=== PATIENT | male | born 1940 | race Caucasian/White ===

== ENCOUNTER 2019-01-02 14:44 | Observation (INO) ==
[2019-01-02] MEDS ORDERED: 0.9 % Sodium Chloride 500 ML IVC ONE (14:50)
--- NOTE | 2019-01-02 14:51 | Emergency Department Note ---
Disposition Clinical Impression: Generalized weakness Acute renal failure Qualifiers: Acute renal failure type: unspecified Qualified Code(s): N17.9 - Acute kidney failure, unspecified Disposition: Admitted As Inpatient Condition: Fair Referrals: Buzz Laboy DO [Primary Care Provider] - Forms: ED Satisfaction Letter Time of Disposition: 15:46 Weakness HPI - General Chief complaint: ED Weakness Stated complaint: WEAKNESS Time Seen by Provider: 01/02/19 14:48 Source: patient, family Mode of arrival: private vehicle Limitations: no limitations Nursing Notes Reviewed: Yes Vital Signs Reviewed: Yes - History of Present Illness HPI Narrative: Patient arrives with a complete history of "did not feel good". He states this has been going on for a "long time". I was eventually able to get from him that this is been a problem intermittently for over a month. He has had a feeling of generalized weakness. At times he will "hurt all over". He saw his primary care provider today in the office and was shown to have a blood pressure 110/57 while sitting with a heart rate of 67 and a standing blood pressure of 83/45 and a heart rate of 74. With this he is advised to come here for further evaluation. Patient denies any type of headache, chest pain or abdominal pain. He denies cough or any abnormal shortness of breath he admits to a normal amount of dyspnea on exertion and work intolerance. He denies any difficulty with speech, thought or any extremity localized numbness, tingling or weakness. He has some chronic pain which he thinks is arthritic in his left knee. Denies a recent falls or injuries. He has not been presyncopal. Denies any change to medications including [id number]. He has not been having diarrhea, constipation or any bloody or black stools. He denies difficulty with urination. Patient does have diabetes but believes his blood or any others have been okay. Family is not able to give any further history on this patient's symptoms. Pt Subjective Complaint: generalized weakness/fatigue Onset (ago): month(s) Duration: intermittent, gradually worsening Location: generalized Pain Severity: moderate If pain, quality: aching Associated symptoms: Reports: myalgias. Denies: chest pain, confusion, dark stools, diaphoresis, dysuria, easy bruising, fever/chills, headaches, loss of appetite, nausea/vomiting, rash, shortness of breath, syncope - Related Data Home Medications Medication Instructions Recorded Confirmed Atorvastatin [Lipitor] 80 mg PO HS 02/20/15 01/02/19 Clopidogrel [Plavix] 75 mg PO DAILY 02/20/15 01/02/19 Lisinopril [Zestril] 5 mg PO DAILY 02/20/15 01/02/19 Metoprolol XL (24 HR) Succ [Toprol 150 mg PO DAILY 02/20/15 01/02/19 XL] Finasteride [Proscar] 5 mg PO DAILY 04/22/18 01/02/19 Pantoprazole Sodium [Protonix] 20 mg PO DAILY 04/22/18 01/02/19 Tamsulosin [Flomax] 0.4 mg PO DAILY 04/22/18 01/02/19 Venlafaxine HCl [Venlafaxine HCl 150 mg PO DAILY 04/22/18 01/02/19 ER] metFORMIN [Glucophage] 1,000 mg PO BIDWM 04/22/18 01/02/19 Gabapentin [Neurontin] 600 mg PO HS 01/02/19 01/02/19 Allergies Allergy/AdvReac Type Severity Reaction Status Date / Time No Known Allergies Allergy Verified 01/02/19 14:46 All systems ED: reviewed and negative except as stated. Past Medical History - Past Medical History Attestation: Yes The following information was validated with the patient. Source: patient, old records reviewed, obtained from family, nursing notes reviewed Medical history: Reports: cancer (Left arm basal cell), coronary artery disease, diabetes, GERD, hyperlipidemia, hypertension, other (Dysrhythmia, elevated BMI, BPH). Denies: COPD, CVA Surgical history: Reports: angioplasty/stent, cancer surgery (Excision of left arm basal cell cancer), pacemaker/AICD Psychiatric history: Reports: no psych history - Social History Smoking Status: Never smoker Smokeless Tobacco Status: No Alcohol use: Reports: none Drug use: Reports: none Physical Exam - General Limitations: no limitations General appearance: alert, in no apparent distress - Head Head exam: atraumatic, normocephalic, normal inspection - Eye Eye exam: Present: normal appearance, PERRL, EOMI. Absent: scleral icterus, conjunctival injection - ENT ENT exam: normal exam, normal oropharynx, mucous membranes moist - Neck Neck exam: Present: normal inspection, full ROM, trachea midline. Absent: lymphadenopathy - Chest Chest inspection: Present: normal inspection, symmetric chest wall rise - Respiratory Respiratory exam: Present: normal lung sounds bilaterally. Absent: respiratory distress, wheezes, prolonged expiratory phase - Cardiovascular Cardiovascular exam: Present: regular rate, normal rhythm, normal heart sounds. Absent: tachycardia - Abdominal Exam Abdominal exam: Present: soft, Non-Tender, normal bowel sounds. Absent: tenderness, distention, guarding, rebound, rigidity, mass, pulsatile mass - Extremities Exam Extremities exam: Present: normal inspection, full ROM, normal capillary refill. Absent: tenderness, pedal edema, calf tenderness - Expanded Lower Extremity Exam Neurovascular/Tendon exam: Present: normal capillary refill. Absent: motor deficit, sensory deficit, tendon deficit Gait: observed and normal - Back Exam Back exam: Present: normal inspection, full ROM. Absent: tenderness, CVA tenderness (R), CVA tenderness (L) - Neurological Exam Neurological exam: Present: alert, oriented X3, normal gait - Psychiatric Psychiatric exam: Present: normal affect, normal mood - Skin Skin exam: Present: warm, dry, intact, normal color. Absent: rash, diaphoresis, pallor Course Course Narrative: 1543: All laboratory results of been reviewed short of the TSH is pending and he has not been yet able to urinate. Patient's white count is low at 2.5 without concerning differential. His platelets are slightly decreased at 126 the hemoglobin is 12.7 and stable. Chemistries remarkable for a BUN 38 and a creatinine of 2.07. This is a significant change from his baseline. His last creatinine on July 12 is 1.17. Patient's AST and ALT are only slightly elevated at 49 and 53. Troponin is negative at less than 0.03. Fluids are continued and the patient and family advised that he should be observed for continued IV hydration and repeat of his chemistries in the morning. Or this purpose Dr. العراقي has been paged. 1554: Care has been reviewed with Dr. العراقي. He is given referral or for the observation of this patient. Patient's antihypertensives and metformin have been held. We are awaiting bed and staff availability prior to going to the floor. Vital Signs Temperature 97.9 F 01/02/19 15:00 Pulse Rate 67 01/02/19 15:00 Respiratory Rate 18 01/02/19 15:00 Blood Pressure 103/64 01/02/19 15:00 O2 Sat by Pulse Oximetry 96 01/02/19 15:00 Temperature 97.9 F 01/02/19 15:00 Pulse Rate 67 01/02/19 15:00 Respiratory Rate 18 01/02/19 15:00 Blood Pressure 103/64 01/02/19 15:00 O2 Sat by Pulse Oximetry 96 01/02/19 15:00 Oxygen Delivery Oxygen Delivery Room Air Weakness - Differential Diagnosis Differential Diagnosis: Likely: anemia, hypoglycemia, sepsis/infection, dehydration, medication effect, metabolic, thyroid/endocrine disorder - Medical Records Medical records reviewed: Yes I reviewed the patient's medical records. - Lab Data Lab results reviewed: Yes I reviewed the patient's lab results. Result diagrams: 01/02/19 15:12 01/02/19 15:12 Lab Results 01/02/19 01/02/19 01/02/19 Range/Units 15:12 15:12 15:12 WBC 2.5 L (4.3-11.1) K/mcL RBC 3.92 L (4.19-5.50) M/mcL Hgb 12.7 L (12.9-16.9) g/dL Hct 41.4 (37.5-50.1) % MCV 105.6 H (83.0-100.0) fL MCH 32.4 (28.0-33.3) pg MCHC 30.7 L (31.6-35.5) g/dL RDW 13.2 (11.5-14.5) % Plt Count 126 L (140-400) K/mcL MPV 9.2 L (9.4-12.4) fL Immature Gran % 0.4 (0-4) % Seg Neutrophils % 54.9 % Lymphocytes % 31.5 % Monocytes % 12.4 % Eosinophils % 0.0 % Basophils % 0.8 % Neutrophils # 1.4 L (1.6-8.9) K/mcL Lymphocytes # 0.8 (0.6-4.6) K/mcL Monocytes # 0.3 (0.0-1.3) K/mcL Eosinophils # 0.0 (0.0-0.6) K/mcL Basophils # 0.0 (0.0-0.2) K/mcL Reactive Lymphocytes Present A (Not Present) Platelet Estimate Normal (Normal) Sodium 134 L (136-145) mEq/L Potassium 5.1 (3.5-5.1) mEq/L Chloride 102 (98-107) mEq/L Carbon Dioxide 22 L (23-29) mEq/L BUN 38 H (8-23) mg/dL Creatinine 2.07 H (0.70-1.30) mg/dL Est GFR ( Amer) 38 L (> 60) Est GFR (Non-Af Amer) 31 L (> 60) BUN/Creatinine Ratio 18 (6-26) Glucose 121 H (70-105) mg/dL Calculated Osmolality 288 (280-300) Calcium 8.4 L (8.6-10.3) mg/dL Total Bilirubin 0.3 (0.3-1.0) mg/dL AST 49 H (13-39) Units/L ALT 53 H (7-52) Units/L Alkaline Phosphatase 58 (34-104) Units/L Troponin I < 0.03 (< 0.04) ng/mL Serum Total Protein 6.8 (6.4-8.9) g/dL Albumin 3.9 (3.5-5.7) g/dL Globulin 2.9 (2.4-3.5) g/dL Albumin/Globulin Ratio 1.3 (1.1-2.2) TSH 4.205 (0.340-5.600) mcIU/mL - Radiology Data Radiology results reviewed: Yes I reviewed the patient's radiology results. Single view chest x-ray is performed. This does not demonstrate evidence for infiltrate, effusion, pneumothorax, foreign body or heart failure. The cardiac silhouette is normal. Patient has a pacemaker in place left upper chest with intact wires. I do not see abnormality to the osseous structures of the chest. This is on my interpretation. Impressions Chest X-Ray 01/02/19 14:49 IMPRESSION: 1. No active pulmonary disease. 2. Cardiomegaly without overt failure. D/ / Yoshi Grace MD / Yoshi Grace MD Interpreting Provider: Yoshi Grace MD - EKG Data EKG attestation: Yes I reviewed and interpreted this EKG. EKG shows normal: sinus rhythm, axis, intervals, ST-T waves Rate: normal (69) [place]/QRS: LBBB Interpretation: no acute changes, nonspecific ST-T wave changes
[2019-01-02 15:18] LABS: Basophils % 0.8 %; Hematocrit 41.4 % (37.5-50.1); Hemoglobin 12.7 g/dL (12.9-16.9); Immature Granulocytes % 0.4 % (0-4); Lymphocytes # 0.8 K/mcL (0.6-4.6); Lymphocytes % 31.5 %; Mean Corpuscular HGB Conc 30.7 g/dL (31.6-35.5); Mean Corpuscular Hemoglobin 32.4 pg (28.0-33.3); Mean Corpuscular Volume 105.6 fL (83.0-100.0); Mean Platelet Volume 9.2 fL (9.4-12.4); Monocytes # 0.3 K/mcL (0.0-1.3); Monocytes % 12.4 %; Neutrophils # 1.4 K/mcL (1.6-8.9); Platelet Count 126 K/mcL (140-400); Red Blood Count 3.92 M/mcL (4.19-5.50); Red Cell Distribution Width 13.2 % (11.5-14.5); Segmented Neutrophils % 54.9 %; White Blood Count 2.5 K/mcL (4.3-11.1)
[2019-01-02 15:36] LABS: Alanine Aminotransferase 53 Units/L (7-52); Albumin 3.9 g/dL (3.5-5.7); Albumin/Globulin Ratio 1.3 (1.1-2.2); Alkaline Phosphatase 58 Units/L (34-104); Aspartate Amino Transferase 49 Units/L (13-39); BUN/Creatinine Ratio 18 (6-26); Bilirubin,Total 0.3 mg/dL (0.3-1.0); Blood Urea Nitrogen 38 mg/dL (8-23); Calcium 8.4 mg/dL (8.6-10.3); Carbon Dioxide 22 mEq/L (23-29); Chloride 102 mEq/L (98-107); Globulin 2.9 g/dL (2.4-3.5); Glucose 121 mg/dL (70-105); Osmolality,Calculated 288 (280-300); Potassium 5.1 mEq/L (3.5-5.1); Sodium 134 mEq/L (136-145); Total Protein 6.8 g/dL (6.4-8.9); eGFR For African Americans 38 (> 60); eGFR For Non-African Americans 31 (> 60)
[2019-01-02 15:37] LABS: Troponin I < 0.03 ng/mL (< 0.04)
[2019-01-02 15:43] LABS: Platelet Estimate Normal (Normal); Reactive Lymphocytes Present (Not Present)
[2019-01-02] MEDS ORDERED: 0.9 % Sodium Chloride 1,000 ML IVC SCH (15:45)
[2019-01-02 15:57] LABS: Bilirubin,Urine Negative (Negative); Blood,Urine Negative (Negative); Clarity,Urine Clear (Clear); Color,Urine Yellow (Yellow); Glucose,Urine (UA) Normal (Normal); Ketones,Urine Trace mg/dL (Negative); Leukocyte Esterase,Urine Negative (Negative); Nitrite,Urine Negative (Negative); Protein,Urine 30 mg/dL (Neg-Trace); Specific Gravity,Urine >= 1.030 (1.010-1.025); Urobilinogen,Urine Normal (Normal)
[2019-01-02 16:05] LABS: Bacteria,Urine Few per hpf (None-Few); Calcium Oxalate Crystals,Urine Present; Granular Casts,Urine Few per lpf (None Seen); Hyaline Casts,Urine Few per lpf (None-Few); RBC,Urine 0-3 per hpf (0-3); Squamous Epithelial Cell,Urine Few per lpf (None-Few); WBC,Urine 0-3 per hpf (0-3)
[2019-01-02] MEDS ORDERED: D5% in Water 1,000 ML IVC PRN (17:47)
[2019-01-02] MEDS ORDERED: Naloxone 0.4 MG/ML INJ IVP PRN (17:47)
[2019-01-02] MEDS ORDERED: *HR* Dextrose 50 % in Water (Vial) 50 ML VIAL IVP PRN (17:47)
[2019-01-02] MEDS ORDERED: Ondansetron ODT 4 MG TAB.RAPDIS SL PRN (17:47)
[2019-01-02] MEDS ORDERED: Dextrose Gel 15 GM/37.5 ML TUBE PO PRN ×2 (17:47)
[2019-01-02] MEDS ORDERED: Mag Hydrox/Al Hydrox/Simeth 30 ML UDC PO PRN (17:47)
[2019-01-02] MEDS ORDERED: MOM Conc 10 ML UD.LIQ PO PRN (17:47)
[2019-01-02] MEDS: 0.9 % Sodium Chloride 1,000 ML IVC SCH (19:41)
[2019-01-02] MEDS: Insulin LISPRO 300 UNITS/3 ML VIAL SQ SCH (20:28)
[2019-01-02] MEDS ORDERED: Gabapentin 300 MG CAPSULE PO SCH (21:00)
[2019-01-03] MEDS ORDERED: Acetaminophen 325 MG TABLET PO PRN (00:01)
[2019-01-03] MEDS: 0.9 % Sodium Chloride 1,000 ML IVC SCH ×2 (00:16→09:26)
[2019-01-03 07:52] LABS: Calcium 7.8 mg/dL (8.6-10.3); Potassium 4.5 mEq/L (3.5-5.1)
[2019-01-03] MEDS ORDERED: Finasteride 5 MG TABLET PO SCH (09:00)
[2019-01-03] MEDS ORDERED: Venlafaxine XR (24 HR) 150 MG CAP.ER.24H PO SCH (09:00)
[2019-01-03] MEDS: Insulin LISPRO 300 UNITS/3 ML VIAL SQ SCH ×2 (09:19→11:46)
[2019-01-03 09:29] LABS: Estimated Average Glucose 160 mg/dl
[2019-01-03 10:42] VITALS: BP 122/69
--- NOTE | 2019-01-03 14:22 | Internal Med History&Physical ---
Date of Encounter: 01/03/19 Time of Encounter: 13:45 Assessment and Plan (1) Acute renal failure Current visit: Yes Status: Acute Suspect secondary to dehydration. IV fluids were ordered in emergency room. Qualifiers: Acute renal failure type: unspecified Qualified Code(s): N17.9 - Acute kidney failure, unspecified (2) Pancytopenia Current visit: Yes Status: Acute Duration unknown. Hemoglobin was decreased at 12.6 on 07/12/2018. WBC was elevated at 11.3 and platelet count normal at that time. (3) Macrocytosis Current visit: Yes Status: Acute Duration unknown. MCV was normal in 07/12/2018 and previous labs. (4) Hypertension Current visit: Yes Status: Chronic Home blood pressures unknown. Blood pressure borderline low on admission. Hold antihypertensive medication at this time. Qualifiers: Hypertension type: essential hypertension Qualified Code(s): I10 - Essential (primary) hypertension (5) Elevated transaminase level Current visit: Yes Status: Acute Duration unknown with no previous labs for comparison. Internal Medicine - H&P: HPI Chief complaint: Weakness Admitted From: Emergency Dept Plans for Post Hospital Care: Home History of present illness: Mr. Whitt is a 78 year old male who came to emergency room complaining of increasing weakness over the past month. He reports an episode of diarrhea and chills the evening of December 30 which did not recur. He went to his PCP Dr. Laboy for the symptoms and was referred to emergency room. He was evaluated in ER and was found to have pancytopenia, macrocytosis, and acute renal insufficiency. He was admitted to [facility] floor for ongoing care needs. He states he feels improved at the present time and wishes to be discharged home. He was unaware he had occasional previous elevations of creatinine dating back to April 2014. He has BPH but denies other kidney bladder or prostate disorders. He denies any vomiting or abdominal pain. He denies disorders of his liver gallbladder or exocrine pancreas. He denies knowledge of previous pancytopenia. He denies internal malignancies or other blood disorders. Past Med Surg Social Fam HX - Past Medical History Medical history: cancer, coronary artery disease, diabetes, GERD, hyperlipidemia, hypertension, myocardial infarction, other Additional medical history: skin ca Psychiatric history: no psych history - Past Surgical History Surgical History: angioplasty/stent, cancer surgery, pacemaker/AICD - Social History Smoking Status: Former smoker Smokeless Tobacco Status: No Alcohol use: none Drug use: none - Family History Mother Living Status: Hx Family Cancer: Yes Internal Medicine - H&P: Meds Atorvastatin [Lipitor] 80 mg PO HS 02/20/15 [History] Clopidogrel [Plavix] 75 mg PO DAILY 02/20/15 [History] Lisinopril [Zestril] 5 mg PO DAILY 02/20/15 [History] Metoprolol XL (24 HR) Succ [Toprol XL] 150 mg PO DAILY 02/20/15 [History] Finasteride [Proscar] 5 mg PO DAILY 04/22/18 [History] Pantoprazole Sodium [Protonix] 20 mg PO DAILY 04/22/18 [History] Tamsulosin [Flomax] 0.4 mg PO DAILY 04/22/18 [History] Venlafaxine HCl [Venlafaxine HCl ER] 150 mg PO DAILY 04/22/18 [History] metFORMIN [Glucophage] 1,000 mg PO BIDWM 04/22/18 [History] Gabapentin [Neurontin] 600 mg PO HS 01/02/19 [History] Allergy/AdvReac Type Severity Reaction Status Date / Time No Known Allergies Allergy Verified 01/02/19 14:46 All Systems PM: A 10-system review of systems was performed and is negative for pertinent findings except as documented above in the HPI. Review of systems: Gen.: He states his weight has been stable for several months Cardiovascular: He has history of hypertension and known ASHD status post [place] 1995. He reports one stent was placed several years ago. He had a heart catheter prior to AICD placement for VT/VF 2014. He reports a single defibrillator discharge has occurred. He denies heart failure DVT or pulmonary embolus. Respiratory: He smoked briefly in his 20s. He denies chronic lung disease. He has not had PFTs, does not use home oxygen, and has not been tested for GLEN. GI: As per history of present illness : As per history of present illness Neurologic: He denies large distribution strokes or seizures. Endocrine: He was diagnosed with DM 2 approximately 2015. He denies thyroid disease or known hyperlipidemia. He is on Lipitor for ASHD secondary prevention. Psychiatric: He has occasional depression but denies anxiety or other mental health issues [place] skeletal: He has chronic low back pain. He denies gout or other bone joint or muscle disorders. - Constitutional Vitals: Temp Pulse Resp BP Pulse Ox 98.7 F 64 18 122/69 93 01/03/19 10:40 01/03/19 10:40 01/03/19 10:40 01/03/19 10:40 01/03/19 10:40 Exam: Gen.: He is a well-developed well-nourished male lying in bed who appears in no acute distress HEENT: Head is atraumatic and normocephalic. Eyes: EOMI. There is no scleral icterus. Mouth: Mucosa is moist. Neck: Supple and nontender. There is no thyromegaly or adenopathy noted. Heart: Regular without murmurs gallops or ectopics Lungs: No wheezes or crackles are heard. Abdomen: Soft and nontender. No masses or guarding are noted. Extremities: There is no cyanosis edema or clubbing noted. Dorsalis pedis and posterior tibial pulses are trace to 1+ palpable bilaterally. Neurologic: Mental status: He is talkative and a good historian. Cranial nerves: Smile is symmetric. Forehead wrinkles bilaterally. Tongue protrudes midline. EOMI. Motor: There is no pronator drift. Cerebellar: Finger to nose is intact bilaterally. Skin: Warm and dry Internal Med - H&P Results - Labs CBC & Chem 7: 01/02/19 15:12 01/03/19 06:40 Labs: Short CBC 01/02/19 Range/Units 15:12 WBC 2.5 L (4.3-11.1) K/mcL Hgb 12.7 L (12.9-16.9) g/dL Hct 41.4 (37.5-50.1) % Plt Count 126 L (140-400) K/mcL Neutrophils # 1.4 L (1.6-8.9) K/mcL BMP 01/02/19 01/03/19 15:12 06:40 Sodium 134 L 137 Potassium 5.1 4.5 Chloride 102 106 Carbon Dioxide 22 L 24 BUN 38 H 31 H Creatinine 2.07 H 1.48 H Glucose 121 H 93 Calcium 8.4 L 7.8 L Cardiac Enzymes 01/02/19 Range/Units 15:12 Troponin I < 0.03 (< 0.04) ng/mL Liver Function 01/02/19 Range/Units 15:12 Total Bilirubin 0.3 (0.3-1.0) mg/dL AST 49 H (13-39) Units/L ALT 53 H (7-52) Units/L Alkaline Phosphatase 58 (34-104) Units/L Albumin 3.9 (3.5-5.7) g/dL Urine 01/02/19 Range/Units 15:53 Urine Color Yellow (Yellow) Urine Clarity Clear (Clear) Urine pH 5.0 (5.0-8.0) pH Units Ur Specific [place] >= 1.030 H (1.010-1.025) Urine Protein 30 H (Neg-Trace) mg/dL Urine Glucose (UA) Normal (Normal) mg/dL - Impressions ITS Impressions Chest X-Ray 01/02/19 14:49 IMPRESSION: 1. No active pulmonary disease. 2. Cardiomegaly without overt failure. D/ / Yoshi Grace MD / Yoshi Grace MD Interpreting Provider: Yoshi Grace MD
--- NOTE | 2019-01-03 14:38 | Discharge Summary ---
Orders not resulted at time of discharge: Pending orders 01/02/19 14:49 ECG 12 lead ECG [ECG] Stat 01/02/19 15:53 Culture,Urine [RM] Stat Date of Encounter: 01/03/19 Time of Encounter: 13:45 - Discharge Diagnosis (1) Acute renal failure Priority: Primary Status: Acute Qualifiers: Acute renal failure type: unspecified Qualified Code(s): N17.9 - Acute kidney failure, unspecified (2) Pancytopenia Priority: Secondary Status: Acute (3) Macrocytosis Priority: Secondary Status: Acute (4) Hypertension Priority: Secondary Status: Chronic Qualifiers: Hypertension type: essential hypertension Qualified Code(s): I10 - Essential (primary) hypertension (5) Elevated transaminase level Priority: Secondary Status: Acute Hospital course: Mr. Whitt is a 78 year old male who came to emergency room complaining of increasing weakness over the past month. He reports an episode of diarrhea and chills the evening of December 30 which did not recur. He went to his PCP Dr. Laboy for the symptoms and was referred to emergency room. He was evaluated in ER and was found to have pancytopenia, macrocytosis, and acute renal insufficiency. He was admitted to [facility] floor for ongoing care needs. Initial orders were written by the emergency room physician. I saw him the afternoon of January 03 and performed a history and physical. He was started on IV fluids in emergency room. Follow-up labs ordered by the ER physician for January 03 showed BUN and creatinine improved to 31 and 1.48 respectively with estimated GFR 46. The patient stated he felt back to his baseline and wished to be discharged home. I offered keeping him another day in the hospital but he declined. I recommended he discontinue lisinopril and decrease metoprolol XL to 100 mg daily. His PCP can order further workup for pancytopenia and macrocytosis and monitor renal indices. He will follow with Dr. Laboy within 1 week. - Time Spent with Patient Total time spent providing and/or coordinating discharge services: - Discharge Medications Prescriptions: New Metoprolol Succinate [Toprol Xl] 100 mg PO DAILY 365 Days tab.er.24h Continued Atorvastatin [Lipitor] 80 mg PO HS Clopidogrel [Plavix] 75 mg PO DAILY metFORMIN [Glucophage] 1,000 mg PO BIDWM Pantoprazole Sodium [Protonix] 20 mg PO DAILY Finasteride [Proscar] 5 mg PO DAILY Venlafaxine HCl [Venlafaxine HCl ER] 150 mg PO DAILY Tamsulosin [Flomax] 0.4 mg PO DAILY Gabapentin [Neurontin] 600 mg PO HS Discontinued Metoprolol XL (24 HR) Succ [Toprol XL] 150 mg PO DAILY Lisinopril [Zestril] 5 mg PO DAILY Home Medications: Atorvastatin [Lipitor] 80 mg PO HS 02/20/15 [History] Clopidogrel [Plavix] 75 mg PO DAILY 02/20/15 [History] Finasteride [Proscar] 5 mg PO DAILY 04/22/18 [History] Pantoprazole Sodium [Protonix] 20 mg PO DAILY 04/22/18 [History] Tamsulosin [Flomax] 0.4 mg PO DAILY 04/22/18 [History] Venlafaxine HCl [Venlafaxine HCl ER] 150 mg PO DAILY 04/22/18 [History] metFORMIN [Glucophage] 1,000 mg PO BIDWM 04/22/18 [History] Gabapentin [Neurontin] 600 mg PO HS 01/02/19 [History] Metoprolol Succinate [Toprol Xl] 100 mg PO DAILY 365 Days tab.er.24h 01/03/19 [Rx] Allergies/Adverse Reactions: Allergy/AdvReac Type Severity Reaction Status Date / Time No Known Allergies Allergy Verified 01/02/19 14:46 Date of admission: 01/02/19 17:41 Primary care physician: Buzz Laboy DO - Constitutional Vitals: Temp Pulse Resp BP Pulse Ox 98.7 F 64 18 122/69 93 01/03/19 10:40 01/03/19 10:40 01/03/19 10:40 01/03/19 10:40 01/03/19 10:40 - Patient Status Disposition: Home, Self-Care Condition: Fair - Discharge Instructions Instructions: Acute Kidney Injury (DC) Follow Up With: Buzz Laboy DO [Primary Care Provider] - 1 week - Diet and Activity Activity: resume usual activities as tolerated Diet: advance to your usual diet
--- NOTE | 2019-01-03 16:58 | Electrocardiograph Report ---
[place] [id number] Test Date: 2019-01-02 Pat Name: John Whitt Department: EDP-15 Room: [facility] Gender: M [employer] T[employer]: : 1940 Requested By: Donavon Adler Order Number: [id number] Reading MD: Ester Lopez Measurements Intervals [place] Rate: 69 P: 40 DC: 224 QRS: -33 QRSD: 133 T: -73 QT: 398 QTc: 427 Interpretive Statements Sinus rhythm Prolonged DC interval Left bundle branch block Electronically Signed On 01-03-2019 16:56:34 EDT by Ester Lopez
== END 2019-01-03 15:02 | disposition home or self-care (01) ==
LOC: INPPIK 14:44 → EMEROOPIK 14:44 → INPPIK 18:50
PROVIDERS: ADMIT Internal Medicine; ATTEND Internal Medicine